=== PATIENT | female | born 1960 | race American Indian/Alaskan Native ===

== ENCOUNTER 2020-11-13 08:00 | Outpatient (CLI) | payer OTHER | END 2020-11-13 08:30 | disposition home or self-care (01) | LOC: PPH VACUNA 08:00 | PROVIDERS: ATTEND Emergency Medicine Pediatric Emergency Medicine | DX: Z23 Encounter for immunization (principal) ==

== ENCOUNTER 2021-03-01 14:02 | Outpatient (CLI) | payer OTHER | END 2021-03-01 14:28 | disposition home or self-care (01) | LOC: LAB 14:02 | DX: U07.1 COVID-19 (principal) ==

== ENCOUNTER → 2021-03-01 | Outpatient (CLI) | payer OTHER | END | disposition home or self-care (01) | LOC: ASH CLINIC 18:00 | PROVIDERS: ATTEND Emergency Medicine | DX: U07.1 COVID-19 (principal); Z23 Encounter for immunization ==

== ENCOUNTER 2021-06-11 11:52 | Outpatient (CLI) | payer OTHER | END 2021-06-11 13:02 | disposition home or self-care (01) | LOC: LAB 11:52 | PROVIDERS: ATTEND Emergency Medicine Pediatric Emergency Medicine | DX: Z20.828 Contact with and (suspected) exposure to other viral communicable diseases (principal) ==

== ENCOUNTER 2024-09-10 06:07 | Outpatient (CLI) | payer OTHER ==
[2024-09-10 07:37] LABS: BASO % 0.7 % (0.1-1.2); EOS # 0.05 (0.04-0.54); EOS % 0.7 % (0.7-7.0); LYMPH # 1.66 (1.18-3.74); LYMPH % 24.7 % (19.3-53.1); MEAN PLATELET VOLUME 12.10 fl (9.4-12.4); MONO # 0.58 (0.24-0.82); MONO % 8.6 % (4.7-12.5); NEUT # 4.37 (1.56-6.13); NEUT % 65.0 % (34.0-71.1); RED CELL DISTRIBUTION WIDTH 14.2 % (11.6-14.4)
[2024-09-10 07:49] LABS: URINE APPEARANCE Clear; URINE BILIRRUBIN Negative (NEGATIVE); URINE BLOOD Negative; URINE COLOR Yellow; URINE GLUCOSE Negative (NEGATIVE); URINE KETONE Negative (NEGATIVE); URINE LEUKOCYTE Trace; URINE NITRATE Positive; URINE PROTEIN Negative (NEGATIVE); URINE UROBILINOGEN 0.2 E.U./dl
[2024-09-10 07:53] LABS: URINE EPITHELIAL CELLS 19.9 uL (0.0-38.8); URINE RBC 23.1 uL (0.0-20.8); URINE WBC 21.9 uL (0.0-23.2)
[2024-09-10 08:03] LABS: URINE BACTERIA > 9821.5 uL (0.0-1933); URINE CAST 0.14 uL (0.0-1.40)
[2024-09-10 08:45] LABS: % SATURACION 14.6 % (15-50); ALT/SGPT 28.0 U/L (12-78); AST/SGOT 15.0 U/L (15-37); BILIRUBIN TOTAL 0.38 mg/dL (0.3-1.2); BUN CREA RATIO 28.0 (7.0-25.0); CREATININE SERUM 0.65 mg/dL (0.55-1.02); FE 52.0 ug/dl (50-170); GFR 92.06; GLOBULINA 3.0 G/DL (2.4-3.5); GLUCOSE FASTING 75.0 mg/dL (65-100); LDH 144.0 U/L (84-246); OSMOLALITY SERUM 282.0 MOSM/KG (275-295); T4 FREE 0.86 NG/ML (0.76-1.46); TSH 1.63 uIU/mL (0.358-3.74)
[2024-09-10 12:24] LABS: FOLIC ACID > 20.00 ng/ml (4.78-20)
[2024-09-11 09:08] LABS: ANTI THYROID PEROXIDASE < 9 IU/mL (0-34)
[2024-09-11 17:08] LABS: ERYTHROPOIETIN 7.0 mIU/mL (2.6-18.5)
[2024-09-12 11:12] LABS: g6pd quant 237 (127-427)
[2024-09-12 15:12] LABS: PARIETAL CELL ANTIBODIES 1.1 Units (0.0-20.0)
== END 2024-09-10 06:25 | disposition home or self-care (01) ==
LOC: LAB 06:07
PROVIDERS: ATTEND Internal Medicine Hematology & Oncology
DX: N39.0 Urinary tract infection, site not specified (principal); D75.1 Secondary polycythemia; I10 Essential (primary) hypertension; J45.998 Other asthma; E03.8 Other specified hypothyroidism; R41.3 Other amnesia; D50.8 Other iron deficiency anemias; R74.02 Elevation of levels of lactic acid dehydrogenase [LDH]; K76.89 Other specified diseases of liver; D55.9 Anemia due to enzyme disorder, unspecified; D51.3 Other dietary vitamin B12 deficiency anemia; D63.1 Anemia in chronic kidney disease

== ENCOUNTER → 2024-11-12 06:10 | Outpatient (CLI) | payer OTHER ==
[2024-11-12 07:50] LABS: URINE APPEARANCE Cloudy; URINE BILIRRUBIN Negative (NEGATIVE); URINE BLOOD Negative; URINE COLOR Yellow; URINE GLUCOSE Negative (NEGATIVE); URINE KETONE Trace (NEGATIVE); URINE LEUKOCYTE Trace; URINE NITRATE Positive; URINE PROTEIN Negative (NEGATIVE); URINE UROBILINOGEN 0.2 E.U./dl
[2024-11-12 07:51] LABS: URINE EPITHELIAL CELLS 24.7 uL (0.0-38.8); URINE RBC 27.5 uL (0.0-20.8); URINE WBC 29.8 uL (0.0-23.2)
[2024-11-12 08:04] LABS: URINE BACTERIA > 9821.5 uL (0.0-1933); URINE CAST 0.29 uL (0.0-1.40)
[2024-11-13 15:12] LABS: ANTI CARDIO IGA < 9 APL U/mL (0-11); ANTI CARDIO IGG < 9 GPL U/mL (0-14)
[2024-11-15 01:06] LABS: ANTI-THROMBIN III 112 % (75-135); PROTEIN C ACTIVITY 105 % (73-180); PROTEIN S ACTIVITY 69 % (63-140)
== END | disposition home or self-care (01) ==
LOC: LAB 06:10
PROVIDERS: ATTEND Internal Medicine Hematology & Oncology
DX: E03.8 Other specified hypothyroidism (principal); J45.998 Other asthma; I10 Essential (primary) hypertension; R41.3 Other amnesia; D45 Polycythemia vera; D68.59 Other primary thrombophilia; E83.110 Hereditary hemochromatosis

== ENCOUNTER 2024-11-17 09:05 | Emergency (ER) | payer OTHER ==
[~2024-11-17] VITALS: Ht 162.6 cm; Wt 63.5 kg
[2024-11-17] MEDS ORDERED: CEFTRIAXONE SODIUM 2,000 MG VIAL IV ONE (09:45)
== END 2024-11-17 10:45 | disposition home or self-care (01) ==
LOC: ER 09:08
DX: N39.0 Urinary tract infection, site not specified (principal)